=== PATIENT | female | born 1955 | race Caucasian/White ===

== ENCOUNTER 2016-10-22 20:44 | Observation (INO) | payer OTHER ==
[~2016-10-22] VITALS: Ht 154.9 cm; Wt 68.0 kg
[2016-10-22 21:46] LABS: BASO # 0.1 x10^3/uL (0.0-0.2); BASO % 1 % (0-3); EOS % 3 % (0-3); HEMATOCRIT 40.6 % (36.0-47.0); HEMOGLOBIN 13.6 g/dL (12.0-15.5); LYMPH # 4.4 x10^3/uL (1.0-4.8); LYMPH % 38 % (24-48); MEAN CORPUSCULAR HEMOGLOBIN 32 pg (25-35); MEAN CORPUSCULAR HGB CONC 33 g/dL (31-37); MEAN CORPUSCULAR VOLUME 95 fL (79-100); MONO % 6 % (0-9); NEUT % 51 % (31-73); PLATELET COUNT 294 x10^3/uL (140-400); RED BLOOD COUNT 4.26 x10^6/uL (3.50-5.40); RED CELL DISTRIBUTION WIDTH 13.2 % (11.5-14.5); WHITE BLOOD COUNT 11.5 x10^3/uL (4.0-11.0)
[2016-10-22 21:58] LABS: ANION GAP 8 (6-14); BLOOD UREA NITROGEN 21 mg/dL (7-20); CALCIUM 9.3 mg/dL (8.5-10.1); CARBON DIOXIDE 30 mmol/L (21-32); CHLORIDE 102 mmol/L (98-107); CREATININE 1.4 mg/dL (0.6-1.0); GLUCOSE 107 mg/dL (70-99); POTASSIUM 3.2 mmol/L (3.5-5.1); SODIUM 140 mmol/L (136-145)
[2016-10-22 22:04] LABS: ALBUMIN 3.8 g/dL (3.4-5.0); ALK PHOS 74 U/L (46-116); ALT (SGPT) 23 U/L (14-59); AST (SGOT) 14 U/L (15-37); DIRECT BILIRUBIN < 0.1 mg/dL (0.0-0.2); TOTAL BILIRUBIN 0.2 mg/dL (0.2-1.0); TOTAL PROTEIN 7.7 g/dL (6.4-8.2)
[2016-10-22 22:04] LABS: BILIRUBIN,URINE NEGATIVE (NEG); GLUCOSE,URINE NEGATIVE (NEG); NITRITE,URINE NEGATIVE (NEG); PROTEIN,URINE NEGATIVE (NEG-TRACE)
[2016-10-22 22:11] LABS: BACTERIA,URINE FEW /HPF (0-FEW); RBC,URINE OCC /HPF (0-2); WBC,URINE OCC /HPF (0-4)
[2016-10-22 22:12] LABS: SQUAMOUS EPITHELIAL CELL,UR MOD /LPF
--- NOTE | 2016-10-22 22:22 | RAD ---
PROCEDURE CT head without contrast. HISTORY Syncope, patient fell, history of seizure TECHNIQUE Helical CT imaging of the brain is performed without IV contrast. PQRS: One or more the following individualized dose reduction techniques were utilized for the study: 1. Automated exposure control. 2. Adjustment of the mA and/or kV according to patient size. 3. Use of iterative reconstruction technique. COMPARISON None. FINDINGS There is no midline shift or mass effect. No extra-axial fluid collection or intraparenchymal hemorrhage. Mcnulty-white matter differentiation is preserved. Ventricles and sulci are normal for patient age. The visualized paranasal sinuses and mastoid air cells are clear. The globes and orbits appear intact. No acute calvarial abnormality. IMPRESSION No acute intracranial abnormality. Electronically signed by: Jelly Roach MD (Oct 22, 2016 22:21:04)
[2016-10-23] VITALS (7 sets, daily range): BP systolic 124–151; BP diastolic 47–72
--- NOTE | 2016-10-23 00:40 | ACF ---
Admission Forms Criteria SYNCOPE Clinical Indications for Admission to Inpatient Care ( Place 'X' for any and all applicable criteria): Admission is indicated for syncope and ANY ONE of the following (1)(2)(3)(4)(5) (6)(7) : [X]I. Inpatient admission required rather than observation care (Also use Syncope: Observation Care Criteria as appropriate) because of ANY ONE of the following: [ ]a) Hemodynamic instability that is severe or persistent [ ]b) Cardiac arrhythmias of immediate concern identified or strongly suspected (eg, needs electrophysiologic study) [ ]c) Acute coronary syndrome identified (Also use Myocardial Infarction or Angina Criteria form ) [ ]d) Structural cardiac disorder (eg, aortic stenosis) suspected as cause that requires immediate correction [X]e) Respiratory symptoms (eg, dyspnea, tachypnea) that are severe or persistent [ ]f) Neurologic signs or symptoms that are severe or persistent ( eg, stroke, seizures, altered mental status) [ ]g) Severe electrolyte abnormalities requiring inpatient care [ ]h) Supplemental oxygen or respiratory treatment for over 24 hrs that are performable only in acute inpatient setting [ ]i) IV fluid to replace significant ongoing (eg, for over 24 hrs ) losses (>3 L/m2 per day) [ ]j) Continuous intravenous infusion of anticoagulation, platelet inhibitor, vasoactive, or antiarrhythmic medication(15)(16) [ ]k) Pulmonary artery catheter monitoring [ ]l) Temporary pacemaker placement(17) [ ]m) Emergent cardioversion(18) [ ]n) Other conditions, treatment or monitoring requiring inpatient admission [ ]II. Suspicion of imminently dangerous cause (eg, rare causes like pericardial tamponade, pulmonary embolism) [ ]III. Syncope causing severe injury requiring hospitalization Extended stay beyond goal length of stay may be needed for(28) [ ]a) Dangerous arrhythmia(15)(23)(27)(29) [ ]b) Myocardial ischemia [ ]c) Seizure disorder [ ]d) Syncope-related injuries The original [employer] content created by [employer] has been revised. The portions of the content which have been revised are identified through the use of italic text or in bold, and [employer] has neither reviewed nor approved the modified material. All other unmodified content is copyright [employer]. Please see references footnoted in the original [facility] edition 2016 Admission Criteria Met?: Yes RONI JAFFE Oct 23, 2016 00:40
[2016-10-23] MEDS ORDERED: ONDANSETRON PF 4 MG/2 ML VIAL. IV PRN (01:00)
[2016-10-23] MEDS ORDERED: MORPHINE SULFATE 2 MG/ML DISP.SYRIN. IV PRN (01:00)
[2016-10-23] MEDS ORDERED: NITROGLYCERIN SUBLINGUAL 0.4 MG BOTTLE OF 25. SL PRN (01:00)
--- NOTE | 2016-10-23 01:41 | PHYS DOC ---
Past Medical History Past Medical History: High Cholesterol, Hypertension Past Surgical History: Appendectomy, Cholecystectomy, Hysterectomy Additional Information: PPD Drug Use: None Adult General Chief Complaint Chief Complaint: SYNCOPE HPI HPI 61-year-old female presenting to the emergency department today after having a syncopal episode. She presents our emergency department by EMS. She reports falling from standing while she was trying to get something from the refrigerator. Her was nearby and heard a loud noise and came to her side. He reports that she woke up and was without postictal confusion. Currently she denies chest pain shortness of breath headache fevers or chills. She has been feeling well for the past few days and does not have a history of syncope. He denies palpitations. She did complain of sensory changes on the left side of her face. Onset today Location generalized Duration once Intermittent No specific timing Review of Systems Review of Systems ROS negative for fevers chills cough abdominal pain chest pain. All other review of systems is negative unless otherwise noted in history of present illness. Allergies Allergies Allergies Coded Allergies Type Severity Reaction Last Updated Verified metoclopramide Allergy Severe Anaphylaxis 10/22/16 Yes Physical Exam Physical Exam Constitutional: Well developed, well nourished, no acute distress, non-toxic appearance. HENT: Normocephalic, atraumatic, bilateral external ears normal, oropharynx moist, no oral exudates, nose normal. Eyes: PERRLA, EOMI, conjunctiva normal, no discharge. [] Neck: Normal range of motion, no tenderness, supple, no stridor. Cardiovascular:Heart rate regular rhythm, no murmur present. Lungs & Thorax: Bilateral breath sounds clear to auscultation Abdomen: Bowel sounds normal, soft, no tenderness, no masses, no pulsatile masses. Skin: Warm, dry, no erythema, no rash. [] Back: No tenderness, no CVA tenderness. Extremities: No tenderness, no cyanosis, no clubbing, ROM intact, no edema. Neurologic: Mental status: Awake oriented and alert x3 Cranial nerves: Extraocular movements intact, eyebrows tricia bilaterally smile symmetric, uvula elevation, shoulder shrug intact, tongue protrusion normal Sensation: equal and normal in all extremities Strength: 5/5 in upper and lower extremities bilaterally Psychologic: Affect normal, judgement normal, mood normal. Current Patient Data Vital Signs Vital Signs Date Time Temp Pulse Resp B/P Pulse Ox O2 Delivery O2 Flow Rate FiO2 10/22/16 23:30 82 17 149/66 95 Room Air 10/22/16 20:44 98.0 98.0 Lab Values Laboratory Tests Test 10/22/16 20:55 10/22/16 21:53 10/22/16 23:00 White Blood Count 11.5x10^3/uL (4.0-11.0) H Red Blood Count 4.26x10^6/uL (3.50-5.40) Hemoglobin 13.6g/dL (12.0-15.5) Hematocrit 40.6% (36.0-47.0) Mean Corpuscular Volume 95fL (79-100) Mean Corpuscular Hemoglobin 32pg (25-35) Mean Corpuscular Hemoglobin Concent 33g/dL (31-37) Red Cell Distribution Width 13.2% (11.5-14.5) Platelet Count 294x10^3/uL (140-400) Neutrophils (%) (Auto) 51% (31-73) Lymphocytes (%) (Auto) 38% (24-48) Monocytes (%) (Auto) 6% (0-9) Eosinophils (%) (Auto) 3% (0-3) Basophils (%) (Auto) 1% (0-3) Neutrophils # (Auto) 5.9x10^3uL (1.8-7.7) Lymphocytes # (Auto) 4.4x10^3/uL (1.0-4.8) Monocytes # (Auto) 0.7x10^3/uL (0.0-1.1) Eosinophils # (Auto) 0.4x10^3/uL (0.0-0.7) Basophils # (Auto) 0.1x10^3/uL (0.0-0.2) Sodium Level 140mmol/L (136-145) Potassium Level 3.2mmol/L (3.5-5.1) L Chloride Level 102mmol/L (98-107) Carbon Dioxide Level 30mmol/L (21-32) Anion Gap 8 (6-14) Blood Urea Nitrogen 21mg/dL (7-20) H Creatinine 1.4mg/dL (0.6-1.0) H Estimated GFR (Cockcroft-Gault) 38.0 Glucose Level 107mg/dL (70-99) H Calcium Level 9.3mg/dL (8.5-10.1) Total Bilirubin 0.2mg/dL (0.2-1.0) Direct Bilirubin < 0.1mg/dL (0.0-0.2) Aspartate Amino Transferase (AST) 14U/L (15-37) L Alanine Aminotransferase (ALT) 23U/L (14-59) Alkaline Phosphatase 74U/L (46-116) Troponin I Quantitative < 0.017ng/mL (0.000-0.055) GJ-Dbm-W-Type Natriuretic Peptide 27pg/mL (0-124) Total Protein 7.7g/dL (6.4-8.2) Albumin 3.8g/dL (3.4-5.0) Lipase 355U/L (73-393) Urine Color Yellow Urine Clarity Clear Urine pH 7.0 Urine Specific [place] 1.010 Urine Protein Negativemg/dL (NEG-TRACE) Urine Glucose (UA) Negativemg/dL (NEG) Urine Ketones (Stick) Negativemg/dL (NEG) Urine Blood Negative (NEG) Urine Nitrite Negative (NEG) Urine Bilirubin Negative (NEG) Urine Urobilinogen Dipstick 1.0mg/dL (0.2 mg/dL) Urine Leukocyte Esterase Negative (NEG) Urine RBC Occ/HPF (0-2) Urine WBC Occ/HPF (0-4) Urine Squamous Epithelial Cells Mod/LPF Urine Bacteria Few/HPF (0-FEW) Urine Mucus Slight/LPF Lactic Acid Level 1.5mmol/L (0.4-2.0) Laboratory Tests 10/22/16 20:55 Laboratory Tests 10/22/16 20:55 EKG EKG [] EKG shows sinus rhythm with a regular rate. [place]ale is leftward. Intervals are within normal limits. ST segments congruent. Radiology/Procedures Radiology/Procedures [] CT head was unremarkable for acute pathology. Course & Med Decision Making Course & Med Decision Making Pertinent Labs and Imaging studies reviewed. (See chart for details) 61-year-old female presenting to the emergency department with syncopal episode. On initial evaluation vital signs were unremarkable. Physical exam showed a normal neurologic exam. EKG was unremarkable. Head CT was negative. Blood work obtained which showed white blood cell count just above the reference range of normal. Otherwise urinalysis unremarkable. Chemistry panel showed mild elevation in BUN and creatinine. Potassium was low at 3.2 as well. Given the patient's age and syncope, the patient was admitted for telemetry and further evaluation workup and care. Dragon Disclaimer Dragon Disclaimer This electronic medical record was generated, in whole or in part, using a voice recognition dictation system. Departure Departure Impression: Primary Impression: Syncope Disposition: ADMITTED INPATIENT Admitting Physician: Kerri Fletcher Condition: STABLE Referrals: PATTI RODRIGUEZ NP (PCP) MICHELLE LANGFORD MD Oct 23, 2016 01:41
[2016-10-23] MEDS ORDERED: ASPI-482 PO (03:00)
[2016-10-23] MEDS ORDERED: OMEG500C PO (03:00)
[2016-10-23] MEDS ORDERED: ROSUVASTATIN CA10 M1 PO (03:00)
[2016-10-23] MEDS ORDERED: AMLO5TAB2 PO (03:00)
[2016-10-23] MEDS ORDERED: HYDR25TA9 PO (03:00)
[2016-10-23] MEDS ORDERED: LOSA50TA6 PO (03:00)
[2016-10-23] MEDS: NICOTINE 21MG PATCH. TD PRN (05:21)
--- NOTE | 2016-10-23 06:11 | EKG ---
[facility] [address] [place] [address] Test Date: 2016-10-22 Test Time: 21:01:17 Pat Name: NILSA TRUJILLO Department: Room: [facility] Gender: F Trimming Inspector: : 1955 Requested By: MICHELLE LANGFORD Order Number: [id number] Reading MD: Gurinder Clifford Measurements Intervals Wittmann Rate: 88 P: 38 DE: 184 QRS: -33 QRSD: 82 T: 28 QT: 374 QTc: 456 Interpretive Statements SINUS RHYTHM ABNORMAL LEFT AXIS DEVIATION LEFT ANTERIOR FASCICULAR BLOCK Electronically Signed On 10-23-2016 15:47:23 COAGULATING [employer]YING SUPERVISOR by Gurinder Clifford
--- NOTE | 2016-10-23 09:45 | RAD ---
EXAM: Carotid Doppler sonogram. HISTORY: Syncope. TECHNIQUE: Doppler sonographic evaluation of the neck was performed and static images are submitted for review. FINDINGS: The peak systolic velocity within the right common carotid artery is 122 cm/sec. The peak systolic velocities within the right proximal, mid and distal internal carotid artery are 57 cm/sec, 67 cm/sec, and 76 cm/sec, respectively. The peak systolic velocity within the left common carotid artery is 128 cm/sec. The peak systolic velocities within the left proximal, mid and distal internal carotid artery are 66 cm/sec, 81 cm/sec, and 80 cm/sec, respectively. There is normal antegrade flow within both vertebral arteries. IMPRESSION: No Doppler evidence of hemodynamically significant stenosis within the carotid or vertebral arteries. PQRS Statement: NASCET criteria were utilized for this exam.
[2016-10-23] MEDS ORDERED: POTASSIUM CHLORIDE 20 MEQ TABLET.ER. PO ONE (10:45)
[2016-10-23] MEDS ORDERED: IBUPROFEN 600 MG TABLET. PO PRN (10:45)
--- NOTE | 2016-10-23 10:55 | PDOC2 ---
NEUROLOGY CONSULT Date of Admission Date of Admission DATE: 10/23/16 TIME: 10:49 Reason for Consult Reason for Consult: Syncope Referring Physician Referring Physician: Dr. Fletcher PCP: Dr. Anna Lara Source Source: Caregiver, Chart review, Patient History of Present Illness History of Present Illness The patient is a 61-year-old right-handed female who fainted for the first time yesterday. Her observed some tremulousness. The whole episode lasted about 5 minutes. There was lightheadedness and diaphoresis prior to the episode in the patient also noticed some left numbness and right arm and leg numbness. There is no prior history of stroke, seizure, head injury. She feels fine now. Past Medical History Cardiovascular: HTN, Hyperlipidemia Musculoskeletal: low back pain Past Surgical History Past Surgical History: Cholecystectomy, Tonsillectomy, Hysterectomy, Other ( Lumbar) Family History Family History: CAD Social History Social History , smoker, occasional alcohol, retired due to her back problems Current Medications Current Medications Current Medications Ondansetron HCl (Zofran) 4 mg PRN Q8HRS PRN IV NAUSEA/VOMITING; Start 10/23/16 at 01:00; Stop 10/24/16 at 00:59 Morphine Sulfate 2 mg PRN Q2HR PRN IV SEVERE PAIN; Start 10/23/16 at 01:00; Stop 10/24/16 at 00:59 Nitroglycerin (Nitrostat) 0.4 mg PRN Q5MIN PRN SL CHEST PAIN; Start 10/23/16 at 01:00; Stop 10/24/16 at 00:59 Nicotine (Nicoderm Cq 21mg) 1 patch PRN DAILY PRN TD SMOKING CESSATION Last administered on 10/23/16t 05:21; Start 10/23/16 at 03:00 Ibuprofen (Motrin) 600 mg PRN Q6HRS PRN PO INFLAMMATION; Start 10/23/16 at 10: 45 Amlodipine Besylate (Norvasc) 5 mg DAILY PO ; Start 10/23/16 at 11:00 Aspirin (Ecotrin) 81 mg DAILY PO ; Start 10/23/16 at 11:00 Hydrochlorothiazide (Hydrodiuril) 25 mg DAILY PO ; Start 10/23/16 at 11:00 Losartan Potassium (Cozaar) 50 mg DAILY PO ; Start 10/23/16 at 11:00 Atorvastatin Calcium (Lipitor) 40 mg QODAY PO ; Start 10/25/16 at 09:00 Potassium Chloride (Klor-Con) 40 meq 1X ONCE PO ; Start 10/23/16 at 10:45; Stop 10/23/16 at 10:46; Status DC Potassium Chloride (Klor-Con) 20 meq DAILYWBKFT PO ; Start 10/24/16 at 08:00 Active Scripts Active Reported Fish Oil (Richton-3 Fatty Acids) 500 Mg Capsule.dr 500 Mg PO Aspir 81 (Aspirin) 81 Mg Tablet.dr 1 Tab PO DAILY Losartan Potassium 50 Mg Tablet 50 Mg PO DAILY Hydrochlorothiazide Tablet (Hydrochlorothiazide) 25 Mg Tablet 25 Mg PO DAILY Rosuvastatin Calcium 10 Mg Tablet 10 Mg PO QODAY Amlodipine Besylate 5 Mg Tablet 5 Mg PO DAILY Allergies Allergies: Coded Allergies: metoclopramide (Verified Allergy, Severe, Anaphylaxis, 10/22/16) ROS Review of System Negative for fevers, chills, weight loss, shortness of breath, chest pain, indigestion, hematochezia, melena, dysuria. Full 14-point review systems is negative. Physical Exam Physical Examination PHYSICAL EXAMINATION: Vital signs: see above. General appearance is normal and in no acute distress. HEENT: Normocephalic and nontraumatic. Eyes, nose, ears, and throat are unremarkable. Neck is supple. No lymphadenopathy. No bruits are heard over the carotid artery. No crepitus. NEUROLOGICAL EXAMINATION: Mental Status Examination: Alert. Oriented to time, place, and person. Answers questions and follows commends. Pupils are equal round and reactive to light and accommodation. Funduscopic exam: No papilledema. Extraocular movements are intact. Visual field exam shows no defect on the direct confrontation. No motor or sensory deficits on the facial exam. Uvula in the midline and the soft palate elevated symmetrically. No deviation of the tongue to any direction. Gross hearing is normal. Shoulder shrug normal. Muscle tone is normal. Muscle strength is 5. Deep tendon reflexes are 2+ all around. Plantar reflex is with flexion response bilaterally. Fperdg-nq-ieee test performance is accurate. Tandem walk test is accurate. Alternative movements are accurate. Romberg test is negative. Gait is normal. Sensory exam shows no deficits. No cerebellar signs are elicited. Vitals VITALS Vital Signs Date Time Temp Pulse Resp B/P Pulse Ox O2 Delivery O2 Flow Rate FiO2 10/23/16 08:00 Room Air 10/23/16 07:00 97.7 56 18 127/64 96 97.7 Labs Labs Laboratory Tests Test 10/22/16 20:55 10/22/16 21:53 10/22/16 23:00 10/23/16 07:00 White Blood Count 11.5x10^3/uL (4.0-11.0) Red Blood Count 4.26x10^6/uL (3.50-5.40) Hemoglobin 13.6g/dL (12.0-15.5) Hematocrit 40.6% (36.0-47.0) Mean Corpuscular Volume 95fL (79-100) Mean Corpuscular Hemoglobin 32pg (25-35) Mean Corpuscular Hemoglobin Concent 33g/dL (31-37) Red Cell Distribution Width 13.2% (11.5-14.5) Platelet Count 294x10^3/uL (140-400) Neutrophils (%) (Auto) 51% (31-73) Lymphocytes (%) (Auto) 38% (24-48) Monocytes (%) (Auto) 6% (0-9) Eosinophils (%) (Auto) 3% (0-3) Basophils (%) (Auto) 1% (0-3) Neutrophils # (Auto) 5.9x10^3uL (1.8-7.7) Lymphocytes # (Auto) 4.4x10^3/uL (1.0-4.8) Monocytes # (Auto) 0.7x10^3/uL (0.0-1.1) Eosinophils # (Auto) 0.4x10^3/uL (0.0-0.7) Basophils # (Auto) 0.1x10^3/uL (0.0-0.2) Sodium Level 140mmol/L (136-145) Potassium Level 3.2mmol/L (3.5-5.1) Chloride Level 102mmol/L (98-107) Carbon Dioxide Level 30mmol/L (21-32) Anion Gap 8 (6-14) Blood Urea Nitrogen 21mg/dL (7-20) Creatinine 1.4mg/dL (0.6-1.0) Estimated GFR (Cockcroft-Gault) 38.0 Glucose Level 107mg/dL (70-99) Calcium Level 9.3mg/dL (8.5-10.1) Total Bilirubin 0.2mg/dL (0.2-1.0) Direct Bilirubin < 0.1mg/dL (0.0-0.2) Aspartate Amino Transf (AST/SGOT) 14U/L (15-37) Alanine Aminotransferase (ALT/SGPT) 23U/L (14-59) Alkaline Phosphatase 74U/L (46-116) Troponin I Quantitative < 0.017ng/mL (0.000-0.055) < 0.017ng/mL (0.000-0.055) OG-Gwb-C-Type Natriuretic Peptide 27pg/mL (0-124) Total Protein 7.7g/dL (6.4-8.2) Albumin 3.8g/dL (3.4-5.0) Lipase 355U/L (73-393) Urine Color Yellow Urine Clarity Clear Urine pH 7.0 Urine Specific [place] 1.010 Urine Protein Negativemg/dL (NEG-TRACE) Urine Glucose (UA) Negativemg/dL (NEG) Urine Ketones (Stick) Negativemg/dL (NEG) Urine Blood Negative (NEG) Urine Nitrite Negative (NEG) Urine Bilirubin Negative (NEG) Urine Urobilinogen Dipstick 1.0mg/dL (0.2 mg/dL) Urine Leukocyte Esterase Negative (NEG) Urine RBC Occ/HPF (0-2) Urine WBC Occ/HPF (0-4) Urine Squamous Epithelial Cells Mod/LPF Urine Bacteria Few/HPF (0-FEW) Urine Mucus Slight/LPF Lactic Acid Level 1.5mmol/L (0.4-2.0) Laboratory Tests Test 10/22/16 20:55 10/22/16 21:53 10/22/16 23:00 10/23/16 07:00 White Blood Count 11.5x10^3/uL (4.0-11.0) Red Blood Count 4.26x10^6/uL (3.50-5.40) Hemoglobin 13.6g/dL (12.0-15.5) Hematocrit 40.6% (36.0-47.0) Mean Corpuscular Volume 95fL (79-100) Mean Corpuscular Hemoglobin 32pg (25-35) Mean Corpuscular Hemoglobin Concent 33g/dL (31-37) Red Cell Distribution Width 13.2% (11.5-14.5) Platelet Count 294x10^3/uL (140-400) Neutrophils (%) (Auto) 51% (31-73) Lymphocytes (%) (Auto) 38% (24-48) Monocytes (%) (Auto) 6% (0-9) Eosinophils (%) (Auto) 3% (0-3) Basophils (%) (Auto) 1% (0-3) Neutrophils # (Auto) 5.9x10^3uL (1.8-7.7) Lymphocytes # (Auto) 4.4x10^3/uL (1.0-4.8) Monocytes # (Auto) 0.7x10^3/uL (0.0-1.1) Eosinophils # (Auto) 0.4x10^3/uL (0.0-0.7) Basophils # (Auto) 0.1x10^3/uL (0.0-0.2) Sodium Level 140mmol/L (136-145) Potassium Level 3.2mmol/L (3.5-5.1) Chloride Level 102mmol/L (98-107) Carbon Dioxide Level 30mmol/L (21-32) Anion Gap 8 (6-14) Blood Urea Nitrogen 21mg/dL (7-20) Creatinine 1.4mg/dL (0.6-1.0) Estimated GFR (Cockcroft-Gault) 38.0 Glucose Level 107mg/dL (70-99) Calcium Level 9.3mg/dL (8.5-10.1) Total Bilirubin 0.2mg/dL (0.2-1.0) Direct Bilirubin < 0.1mg/dL (0.0-0.2) Aspartate Amino Transf (AST/SGOT) 14U/L (15-37) Alanine Aminotransferase (ALT/SGPT) 23U/L (14-59) Alkaline Phosphatase 74U/L (46-116) Troponin I Quantitative < 0.017ng/mL (0.000-0.055) < 0.017ng/mL (0.000-0.055) GU-Gjq-J-Type Natriuretic Peptide 27pg/mL (0-124) Total Protein 7.7g/dL (6.4-8.2) Albumin 3.8g/dL (3.4-5.0) Lipase 355U/L (73-393) Urine Color Yellow Urine Clarity Clear Urine pH 7.0 Urine Specific [place] 1.010 Urine Protein Negativemg/dL (NEG-TRACE) Urine Glucose (UA) Negativemg/dL (NEG) Urine Ketones (Stick) Negativemg/dL (NEG) Urine Blood Negative (NEG) Urine Nitrite Negative (NEG) Urine Bilirubin Negative (NEG) Urine Urobilinogen Dipstick 1.0mg/dL (0.2 mg/dL) Urine Leukocyte Esterase Negative (NEG) Urine RBC Occ/HPF (0-2) Urine WBC Occ/HPF (0-4) Urine Squamous Epithelial Cells Mod/LPF Urine Bacteria Few/HPF (0-FEW) Urine Mucus Slight/LPF Lactic Acid Level 1.5mmol/L (0.4-2.0) Images Images Head CT and carotid Dopplers negative Assessment/Plan Assessment/Plan Impression: Vasovagal syncope, but she did have some tremulousness raising the possibility of a seizure, and she had some focal neurological symptoms, raising the possibility of a transient ischemic attack. Recommendations: Carotid Doppler's (already done) MRI of the brain Echocardiogram Electroencephalogram Cardiac monitoring Aim for discharged today if tests unrewarding. I explained to the patient and her that we determine the diagnosis for syncope in certainty only about 25% of the time, basically when a patient is hooked up to monitoring during the episode. If she has further episodes she could have an implantable Loop recorder. Thank you for letting me help with the patient's care. TASHIA MAXWELL MD Oct 23, 2016 10:55
[2016-10-23] MEDS ORDERED: HYDROCHLOROTHIAZIDE 25 MG TABLET PO SCH (11:00)
--- NOTE | 2016-10-23 11:13 | PDOC1 ---
History and Physical Date of Admission Date of Admission DATE: 10/23/16 TIME: 11:09 Identification/Chief Complaint Chief Complaint syncope Source Source: Caregiver, Chart review, Patient History of Present Illness History of Present Illness syncope. was not feeling well yesterday, felt "woozy" with sinus pressure. then her BP was up and she ":doubled up" on her BP meds. she then saw stars , and lost a short amount of time after she bent over looking in the fridge. she thinks she passed out, but she feels much better today, she otherwise feels ill like she has a cold. No fever, no myalgias. no cough polly also complains of crampy leg pain since she started statin med Past Medical History Cardiovascular: HTN, Hyperlipidemia Musculoskeletal: low back pain Past Surgical History Past Surgical History: Cholecystectomy, Tonsillectomy, Hysterectomy, Other ( Lumbar) Family History Family History: No Significant Social History Smoke: <1 pack per day ALCOHOL: none Drugs: None Current Problem List Problem List Problems Medical Problems: (1) Syncope Status: Acute Problems: Current Medications Current Medications Current Medications Ondansetron HCl (Zofran) 4 mg PRN Q8HRS PRN IV NAUSEA/VOMITING; Start 10/23/16 at 01:00; Stop 10/24/16 at 00:59 Morphine Sulfate 2 mg PRN Q2HR PRN IV SEVERE PAIN; Start 10/23/16 at 01:00; Stop 10/24/16 at 00:59 Nitroglycerin (Nitrostat) 0.4 mg PRN Q5MIN PRN SL CHEST PAIN; Start 10/23/16 at 01:00; Stop 10/24/16 at 00:59 Nicotine (Nicoderm Cq 21mg) 1 patch PRN DAILY PRN TD SMOKING CESSATION Last administered on 10/23/16t 05:21; Start 10/23/16 at 03:00 Ibuprofen (Motrin) 600 mg PRN Q6HRS PRN PO INFLAMMATION; Start 10/23/16 at 10: 45 Amlodipine Besylate (Norvasc) 5 mg DAILY PO ; Start 10/23/16 at 11:00 Aspirin (Ecotrin) 81 mg DAILY PO ; Start 10/23/16 at 11:00 Hydrochlorothiazide (Hydrodiuril) 25 mg DAILY PO ; Start 10/23/16 at 11:00 Losartan Potassium (Cozaar) 50 mg DAILY PO ; Start 10/23/16 at 11:00 Atorvastatin Calcium (Lipitor) 40 mg QODAY PO ; Start 10/25/16 at 09:00 Potassium Chloride (Klor-Con) 40 meq 1X ONCE PO ; Start 10/23/16 at 10:45; Stop 10/23/16 at 10:46; Status DC Potassium Chloride (Klor-Con) 20 meq DAILYWBKFT PO ; Start 10/24/16 at 08:00 Active Scripts Active Reported Fish Oil ([place]-3 Fatty Acids) 500 Mg Capsule.dr 500 Mg PO Aspir 81 (Aspirin) 81 Mg Tablet.dr 1 Tab PO DAILY Losartan Potassium 50 Mg Tablet 50 Mg PO DAILY Hydrochlorothiazide Tablet (Hydrochlorothiazide) 25 Mg Tablet 25 Mg PO DAILY Rosuvastatin Calcium 10 Mg Tablet 10 Mg PO QODAY Amlodipine Besylate 5 Mg Tablet 5 Mg PO DAILY Allergies Allergies: Coded Allergies: metoclopramide (Verified Allergy, Severe, Anaphylaxis, 10/22/16) ROS General: YES: Appetite, Fatigue, Malaise, No: Chills, Night Sweats, Other PSYCHOLOGICAL ROS: No: Anxiety, Behavioral Disorder, Concentration difficultie , Decreased libido, Depression, Disorientation, Hallucinations, Hostility, Irritablity, Memory difficulties, Mood Swings, Obsessive thoughts, Other, Physical abuse, Sexual abuse, Sleep disturbances, Suicidal ideation Eyes: No Blurry vision, No Decreased vision, No Double vision, No Dry eyes, No Excessive tearing, No Eye Pain, No Itchy Eyes, No Loss of vision, No Other, No Photophobia, No Scotomata, No Uses contacts, No Uses glasses HEENT: YES: Heacaches, Sinus pain, Sneezing, Vocal changes, No: Epistaxis, Hearing change, Nasal congestion, Nasal discharge, Oral lesions, Other, Snoring, Sore Throat, Tinnitus, Vertigo, Visual Changes Respiratory: No: Cough, Hemoptysis, Orthopnea, Other, Pleuritic Pain, SOB with excertion, Shortness of breath, Sputum Changes, Stridor, Tachypnea, Wheezing Cardiovascular: No Chest Pain, No Edema, No Lt Headedness, No Orthopnea, No Other, No Palpitations, No Paroxysmal Noc. Dyspnea Gastrointestinal: No Abdominal Pain, No Constipation, No Diarrhea, No Hematochezia, No Melena, No Nausea, No Other, No Vomiting Genitourinary: No , No , No , No , No , No , No , No Discharge, No Dysuria, No Flank Pain, No Frequency, No Hematuria, No Incontinence, No Other, No Pain, No Retention, No Urgency Musculoskeletal: Yes Joint Pain, No Gait Disturbance, No Joint Stiffness, No Joint Swelling, No Muscle Pain, No Muscular Weakness, No Other, No Pain In:, No Swelling In: Neurological: No Behavorial Changes, No Bowel/Bladder ControlChng, No Confusion , No Dizziness, No Gait Disturbance, No Headaches, No Impaired Coord/balance, No Memory Loss, No Numbness/Tingling, No Other, No Seizures, No Speech Problems , No Tremors, No Visual Changes, No Weakness Skin: No Acne, No Dry Skin, No Eczema, No Hair Changes, No Lumps, No Mole Changes, No Mottling, No Nail Changes, No Other, No Pruritus, No Rash, No Skin Lesion Changes Physical Exam General: Alert, Oriented X3, Cooperative, No acute distress HEENT: Atraumatic, PERRLA, EOMI, Mucous membr. moist/pink Lungs: Clear to auscultation Heart: S1S2, no murmurs Abdomen: Normal bowel sounds, Soft Extremities: No clubbing, No edema Skin: No rashes, No breakdown, No significant lesion Neuro: Normal tone, Sensation intact, Cranial nerves 3-12 NL Vitals Vitals Vital Signs Date Time Temp Pulse Resp B/P Pulse Ox O2 Delivery O2 Flow Rate FiO2 10/23/16 08:00 Room Air 10/23/16 07:00 97.7 56 18 127/64 96 97.7 Labs Labs Laboratory Tests Test 10/22/16 20:55 10/22/16 21:53 10/22/16 23:00 10/23/16 07:00 White Blood Count 11.5x10^3/uL (4.0-11.0) Red Blood Count 4.26x10^6/uL (3.50-5.40) Hemoglobin 13.6g/dL (12.0-15.5) Hematocrit 40.6% (36.0-47.0) Mean Corpuscular Volume 95fL (79-100) Mean Corpuscular Hemoglobin 32pg (25-35) Mean Corpuscular Hemoglobin Concent 33g/dL (31-37) Red Cell Distribution Width 13.2% (11.5-14.5) Platelet Count 294x10^3/uL (140-400) Neutrophils (%) (Auto) 51% (31-73) Lymphocytes (%) (Auto) 38% (24-48) Monocytes (%) (Auto) 6% (0-9) Eosinophils (%) (Auto) 3% (0-3) Basophils (%) (Auto) 1% (0-3) Neutrophils # (Auto) 5.9x10^3uL (1.8-7.7) Lymphocytes # (Auto) 4.4x10^3/uL (1.0-4.8) Monocytes # (Auto) 0.7x10^3/uL (0.0-1.1) Eosinophils # (Auto) 0.4x10^3/uL (0.0-0.7) Basophils # (Auto) 0.1x10^3/uL (0.0-0.2) Sodium Level 140mmol/L (136-145) Potassium Level 3.2mmol/L (3.5-5.1) Chloride Level 102mmol/L (98-107) Carbon Dioxide Level 30mmol/L (21-32) Anion Gap 8 (6-14) Blood Urea Nitrogen 21mg/dL (7-20) Creatinine 1.4mg/dL (0.6-1.0) Estimated GFR (Cockcroft-Gault) 38.0 Glucose Level 107mg/dL (70-99) Calcium Level 9.3mg/dL (8.5-10.1) Total Bilirubin 0.2mg/dL (0.2-1.0) Direct Bilirubin < 0.1mg/dL (0.0-0.2) Aspartate Amino Transf (AST/SGOT) 14U/L (15-37) Alanine Aminotransferase (ALT/SGPT) 23U/L (14-59) Alkaline Phosphatase 74U/L (46-116) Troponin I Quantitative < 0.017ng/mL (0.000-0.055) < 0.017ng/mL (0.000-0.055) GJ-Mjp-W-Type Natriuretic Peptide 27pg/mL (0-124) Total Protein 7.7g/dL (6.4-8.2) Albumin 3.8g/dL (3.4-5.0) Lipase 355U/L (73-393) Urine Color Yellow Urine Clarity Clear Urine pH 7.0 Urine Specific [place] 1.010 Urine Protein Negativemg/dL (NEG-TRACE) Urine Glucose (UA) Negativemg/dL (NEG) Urine Ketones (Stick) Negativemg/dL (NEG) Urine Blood Negative (NEG) Urine Nitrite Negative (NEG) Urine Bilirubin Negative (NEG) Urine Urobilinogen Dipstick 1.0mg/dL (0.2 mg/dL) Urine Leukocyte Esterase Negative (NEG) Urine RBC Occ/HPF (0-2) Urine WBC Occ/HPF (0-4) Urine Squamous Epithelial Cells Mod/LPF Urine Bacteria Few/HPF (0-FEW) Urine Mucus Slight/LPF Lactic Acid Level 1.5mmol/L (0.4-2.0) Laboratory Tests Test 10/22/16 20:55 10/22/16 21:53 10/22/16 23:00 10/23/16 07:00 White Blood Count 11.5x10^3/uL (4.0-11.0) Red Blood Count 4.26x10^6/uL (3.50-5.40) Hemoglobin 13.6g/dL (12.0-15.5) Hematocrit 40.6% (36.0-47.0) Mean Corpuscular Volume 95fL (79-100) Mean Corpuscular Hemoglobin 32pg (25-35) Mean Corpuscular Hemoglobin Concent 33g/dL (31-37) Red Cell Distribution Width 13.2% (11.5-14.5) Platelet Count 294x10^3/uL (140-400) Neutrophils (%) (Auto) 51% (31-73) Lymphocytes (%) (Auto) 38% (24-48) Monocytes (%) (Auto) 6% (0-9) Eosinophils (%) (Auto) 3% (0-3) Basophils (%) (Auto) 1% (0-3) Neutrophils # (Auto) 5.9x10^3uL (1.8-7.7) Lymphocytes # (Auto) 4.4x10^3/uL (1.0-4.8) Monocytes # (Auto) 0.7x10^3/uL (0.0-1.1) Eosinophils # (Auto) 0.4x10^3/uL (0.0-0.7) Basophils # (Auto) 0.1x10^3/uL (0.0-0.2) Sodium Level 140mmol/L (136-145) Potassium Level 3.2mmol/L (3.5-5.1) Chloride Level 102mmol/L (98-107) Carbon Dioxide Level 30mmol/L (21-32) Anion Gap 8 (6-14) Blood Urea Nitrogen 21mg/dL (7-20) Creatinine 1.4mg/dL (0.6-1.0) Estimated GFR (Cockcroft-Gault) 38.0 Glucose Level 107mg/dL (70-99) Calcium Level 9.3mg/dL (8.5-10.1) Total Bilirubin 0.2mg/dL (0.2-1.0) Direct Bilirubin < 0.1mg/dL (0.0-0.2) Aspartate Amino Transf (AST/SGOT) 14U/L (15-37) Alanine Aminotransferase (ALT/SGPT) 23U/L (14-59) Alkaline Phosphatase 74U/L (46-116) Troponin I Quantitative < 0.017ng/mL (0.000-0.055) < 0.017ng/mL (0.000-0.055) LT-Yyx-I-Type Natriuretic Peptide 27pg/mL (0-124) Total Protein 7.7g/dL (6.4-8.2) Albumin 3.8g/dL (3.4-5.0) Lipase 355U/L (73-393) Urine Color Yellow Urine Clarity Clear Urine pH 7.0 Urine Specific [place] 1.010 Urine Protein Negativemg/dL (NEG-TRACE) Urine Glucose (UA) Negativemg/dL (NEG) Urine Ketones (Stick) Negativemg/dL (NEG) Urine Blood Negative (NEG) Urine Nitrite Negative (NEG) Urine Bilirubin Negative (NEG) Urine Urobilinogen Dipstick 1.0mg/dL (0.2 mg/dL) Urine Leukocyte Esterase Negative (NEG) Urine RBC Occ/HPF (0-2) Urine WBC Occ/HPF (0-4) Urine Squamous Epithelial Cells Mod/LPF Urine Bacteria Few/HPF (0-FEW) Urine Mucus Slight/LPF Lactic Acid Level 1.5mmol/L (0.4-2.0) VTE Prophylaxis Ordered VTE Prophylaxis Devices: Yes VTE Pharmacological Prophylaxi: No Assessment/Plan Assessment/Plan syncope orthostatic vs. vagal acute viral illness HTn, home med regimen should remain static, discussed hyperlipids, she reports intolerance of current statin MALACHI DE JESUS MD Oct 23, 2016 11:13
--- NOTE | 2016-10-23 11:42 | PDOC2 ---
ANTONIA IQBAL PACKAGE SEALER MACHINE 10/23/16 1142: CARDIAC CONSULT DATE OF CONSULT Date of Consult DATE: 10/23/16 TIME: 11:37 REASON FOR CONSULT Reason for Consult: syncope REFERRING PHYSICIAN Referring Physician: Jose SOURCE Source: Chart review, Patient HISTORY OF PRESENT ILLNESS HISTORY OF PRESENT ILLNESS This is a pleasant 61 yo female admitted for complains of ASTORGA, palpitations, and passing out. Reports that she not passed out in the past. Reports that he woke up yesterday was feeling weird. He then started having palpitations. she could not tell me how long this lasted but no symptoms of immediate chest pain, nor SOA. She did started having tightening bilateral ASTORGA which started on her forehead thinking it was sinus then went to occiput then all over her head. She could not tell me how long this lasted but this was associated with falshes of light tinnitus, left facial numbness and left unilateral circumoral tingling. No unilateral extremity weakness, dysarthria nor facial droop. She then proceed to get a bowl and bend over and felt weak. She tried to return to her room and was told that she may have fallen forward for the next thing she remembered was her sitting with her legs up. She was not sure how long she was passed out but no injury was sustained. She does have sensitivity to low potassium explaining that she had seizures about 4-5 yrs ago due to low potassium she was told. She verbalized hydration adequacy and she does consume about 4-5 cups of coffee a day. She smokes tobacco and marijuana as well. Denies any CAD and actually had a treadmill stress test about 2 yrs ago which was normal and denies any hx of VTE, arrhythmia. Denies use of sudafed or any stimulants due to her HTN. She did checked her BP while she had her ASTORGA and it was 180/80 and noted that her HR at that time in the 100-110. PAST MEDICAL HISTORY Cardiovascular: HTN, Hyperlipidemia Pulmonary: No pertinent hx CENTRAL NERVOUS SYSTEM: Seizure (4-5 yrs ago, hypokalemia related?) GI: No pertinent hx Heme/Onc: No pertinent hx Hepatobiliary: No pertinent hx Psych: Anxiety Musculoskeletal: Osteoarthritis Rheumatologic: No pertinent hx Infectious disease: No pertinent hx ENT: No pertinent hx Renal/: No pertinent hx Endocrine: No pertinent hx Dermatology: No pertinent hx PAST SURGICAL HISTORY Past Surgical History: Cholecystectomy, Tonsillectomy, Hysterectomy, Other ( lumbar surgery) FAMILY HISTORY Family History noncontributory SOCIAL HISTORY Smoke: <1 pack per day (45 yrs) ALCOHOL: occassional Drugs: Marijuana Lives: with Family CURRENT MEDICATIONS CURRENT MEDICATIONS Current Medications Medications (Trade) Dose Ordered Sig/Vianca Route PRN Reason Start Time Stop Time Status Last Admin Dose Admin Nicotine (Nicoderm Cq 21mg) 1 patch PRN DAILY PRN TD SMOKING CESSATION 10/23/16 03:00 10/23/16 05:21 ALLERGIES ALLERGIES: Coded Allergies: metoclopramide (Verified Allergy, Severe, Anaphylaxis, 10/22/16) ROS Review of System 14 point ROS evaluated with pertinent positives noted per HPI PHYSICAL EXAM General: Alert, Oriented X3, Cooperative, No acute distress HEENT: Atraumatic, Mucous membr. moist/pink Lungs: Clear to auscultation, Normal air movement Heart: Regular rate, Normal S1, Normal S2, Other (2/6 systolic murmur to [place] border) Extremities: No cyanosis, No edema Skin: No breakdown, No significant lesion Neuro: Normal speech, Sensation intact Psych/Mental Status: Mental status NL, Mood NL MUSCULOSKELETAL: Osteoarthritic changes both hands VITALS VITALS Vital Signs Date Time Temp Pulse Resp B/P Pulse Ox O2 Delivery O2 Flow Rate FiO2 10/23/16 08:00 Room Air 10/23/16 07:00 97.7 56 18 127/64 96 97.7 LABS Lab: Laboratory Tests Test 10/22/16 20:55 10/22/16 21:53 10/22/16 23:00 10/23/16 07:00 White Blood Count 11.5x10^3/uL (4.0-11.0) Red Blood Count 4.26x10^6/uL (3.50-5.40) Hemoglobin 13.6g/dL (12.0-15.5) Hematocrit 40.6% (36.0-47.0) Mean Corpuscular Volume 95fL (79-100) Mean Corpuscular Hemoglobin 32pg (25-35) Mean Corpuscular Hemoglobin Concent 33g/dL (31-37) Red Cell Distribution Width 13.2% (11.5-14.5) Platelet Count 294x10^3/uL (140-400) Neutrophils (%) (Auto) 51% (31-73) Lymphocytes (%) (Auto) 38% (24-48) Monocytes (%) (Auto) 6% (0-9) Eosinophils (%) (Auto) 3% (0-3) Basophils (%) (Auto) 1% (0-3) Neutrophils # (Auto) 5.9x10^3uL (1.8-7.7) Lymphocytes # (Auto) 4.4x10^3/uL (1.0-4.8) Monocytes # (Auto) 0.7x10^3/uL (0.0-1.1) Eosinophils # (Auto) 0.4x10^3/uL (0.0-0.7) Basophils # (Auto) 0.1x10^3/uL (0.0-0.2) Sodium Level 140mmol/L (136-145) Potassium Level 3.2mmol/L (3.5-5.1) Chloride Level 102mmol/L (98-107) Carbon Dioxide Level 30mmol/L (21-32) Anion Gap 8 (6-14) Blood Urea Nitrogen 21mg/dL (7-20) Creatinine 1.4mg/dL (0.6-1.0) Estimated GFR (Cockcroft-Gault) 38.0 Glucose Level 107mg/dL (70-99) Calcium Level 9.3mg/dL (8.5-10.1) Total Bilirubin 0.2mg/dL (0.2-1.0) Direct Bilirubin < 0.1mg/dL (0.0-0.2) Aspartate Amino Transf (AST/SGOT) 14U/L (15-37) Alanine Aminotransferase (ALT/SGPT) 23U/L (14-59) Alkaline Phosphatase 74U/L (46-116) Troponin I Quantitative < 0.017ng/mL (0.000-0.055) < 0.017ng/mL (0.000-0.055) DB-Ols-K-Type Natriuretic Peptide 27pg/mL (0-124) Total Protein 7.7g/dL (6.4-8.2) Albumin 3.8g/dL (3.4-5.0) Lipase 355U/L (73-393) Urine Color Yellow Urine Clarity Clear Urine pH 7.0 Urine Specific [place] 1.010 Urine Protein Negativemg/dL (NEG-TRACE) Urine Glucose (UA) Negativemg/dL (NEG) Urine Ketones (Stick) Negativemg/dL (NEG) Urine Blood Negative (NEG) Urine Nitrite Negative (NEG) Urine Bilirubin Negative (NEG) Urine Urobilinogen Dipstick 1.0mg/dL (0.2 mg/dL) Urine Leukocyte Esterase Negative (NEG) Urine RBC Occ/HPF (0-2) Urine WBC Occ/HPF (0-4) Urine Squamous Epithelial Cells Mod/LPF Urine Bacteria Few/HPF (0-FEW) Urine Mucus Slight/LPF Lactic Acid Level 1.5mmol/L (0.4-2.0) ASSESSMENT/PLAN ASSESSMENT/PLAN 1. Syncope with nontraumatic fall: neurology following. Positive for photopsia/ tinnitus/left facial numbness and circumoral tingling with ASTORGA. Possible migraine /vasovagal component with associated prerenal azotemia from volume depletion. Will need to rule out arrhythmia episode with initial symptom of palpitations. TTE today. Tele review revealed no significant ectopies. EKG SR with LAFB. If tests are inconclusive then will plan for event monitor. Check for orthostasis. 2. Accelerated HTN: controlled now with losartan and amlodipine. Uptitrate per BP response. Start on ECASA for primary prevention. 3. HLP: statin 4. Hx of seizure: was told related to significant hypokalemia with increased sensitivity. Takes HCTZ TIW. Recommend discontinuation. 5. Hypokalemia: replaced now normal. DC HCTZ 6. Tobaccoism: smoking cessation. Possible undiagnosed COPD. Consider MARTHA workup as an outpt. 7. Substance abuse: marijuana use, advised abstinence. Problems: JEREMY BRINK MD 10/23/16 194: CARDIAC CONSULT ALLERGIES ALLERGIES: Coded Allergies: metoclopramide (Verified Allergy, Severe, Anaphylaxis, 10/22/16) ASSESSMENT/PLAN ASSESSMENT/PLAN Patient seen and examined. Agree with PILATES INSTRUCTOR's assessment and plan. Syncope most probably vasovagal. Tele did not show any arrhythmias so far. 2D echo showed normal LV function without any structural abnormalities. Continue workup per Neurology team. We will consider event monitor as outpatient. BP better controlled since admission. Continue current medical regimen. Thank you for your consultation. Problems: ANTONIA IQBAL APRN Oct 23, 2016 11:42 JEREMY BRINK MD Oct 23, 2016 19:41
--- NOTE | 2016-10-23 11:57 | CARD ---
APPROVED REPORT EXAM: Two-dimensional and M-mode echocardiogram with Doppler and color Doppler. Other Information Quality : Average Rhythm : NSR INDICATION Syncope 2D DIMENSIONS RVDd3.7 (2.9-3.5cm)Left Atrium(2D)3.2 (1.6-4.0cm) IVSd1.2 (0.7-1.1cm)Aortic Root(2D)2.8 (2.0-3.7cm) LVDd4.3 (3.9-5.9cm)LVOT Diameter2.0 (1.8-2.4cm) PWd1.2 (0.7-1.1cm)LVDs2.6 (2.5-4.0cm) FS (%) 39.5 %SV57.0 ml LVEF(%)70.4 (>50%) Aortic Valve AoV Peak Pedro.160.1cm/sAoV VTI28.1cm AO Peak GR.10.3mmHgLVOT Peak Pedro.131.5cm/s LVOT VTI 26.81cmAO Mean GR.5mmHg CLYDE (VMAX)2.50dd4QTB (VTI)3.04cm2 AI P 1/2 Vvrv000mo Mitral Valve MV E Vmbiobip04.4cm/sMV DECEL QWTM468ol MV A Uxkzavyy60.8cm/sMV E Mean Gr.2mmHg MV RKH38lkK/A Ratio1.0 MV A Mnxierjv639hjZWF (PHT)3.21cm2 TDI E/Lateral E'7.7E/Medial E'10.4 Pulmonary Valve PV Peak Mkldqtoi890.8cm/sPV Peak Grad.5mmHg RVOT VTI21.7cm Tricuspid Valve TR P. Vqimvaas770sm/sRAP XCDKZVYW0jpDv TR Peak Gr.73hiNsOEWL04mfVm Pulmonary Vein S1 Iktloyui00.3cm/sD2 Khnuwzzf26.8cm/s LEFT VENTRICLE The left ventricle is normal size. There is borderline concentric left ventricular hypertrophy. Left ventricle systolic function is normal. The Ejection Fraction is 65-70%. There is normal LV segmental wall motion. The left ventricular diastolic function and filling is normal for age. RIGHT VENTRICLE The right ventricle is normal size. The right ventricular systolic function is normal. ATRIA The left atrium size is normal. The right atrium size is normal. The interatrial septum is intact wit h no evidence for an atrial septal defect or patent foramen ovale as noted on 2-D or Doppler imaging. AORTIC VALVE The aortic valve is normal in structure. The aortic valve is trileaflet. Doppler and Color Flow revea led mild aortic regurgitation. There is no significant aortic valvular stenosis. MITRAL VALVE The mitral valve is normal in structure and function. There is no mitral valve stenosis. Doppler and Color Flow revealed no mitral valve regurgitation noted. TRICUSPID VALVE The tricuspid valve is normal in structure and function. Doppler and Color Flow revealed mild tricusp id regurgitation. The PA pressure was estimated at 27 mmHg. There is no tricuspid valve stenosis. PULMONIC VALVE The pulmonic valve is not well visualized. Doppler and Color Flow revealed no pulmonic valvular regur gitation. There is no pulmonic valvular stenosis. GREAT VESSELS The aortic root is normal in size. Normal pulmonary venous flow (Doppler). The IVC is normal in size and collapses >50% with inspiration. PERICARDIAL EFFUSION There is no evidence of significant pericardial effusion. Critical Notification Critical Value: No <Conclusion> Left ventricle systolic function is normal. The Ejection Fraction is 65-70%. There is normal LV segmental wall motion. Doppler and Color Flow revealed mild aortic regurgitation.
[2016-10-23 11:58] LABS: CALCIUM 8.9 mg/dL (8.5-10.1); CREATININE 0.9 mg/dL (0.6-1.0); GFR 63.2; MAGNESIUM 2.3 mg/dL (1.8-2.4); POTASSIUM 3.6 mmol/L (3.5-5.1)
--- NOTE | 2016-10-23 13:04 | EEG ---
DATE OF SERVICE: 10/23/2016 ATTENDING PHYSICIAN: Dr. Fletcher. OBJECTIVE: The patient is a 61-year-old female with syncope, possible convulsive activity. DESCRIPTION: This is a digital study. Electrodes are placed according to the international 10-20 system. Bipolar and referential montages are available. Activation procedures typically include hyperventilation and intermittent photic stimulation. INTERPRETATION: The waking background consists of 9-10 Hz, 50-100 microvolt activity, symmetrically distributed over parietooccipital regions and reactive to eye opening. Brief episodes of drowsiness are seen. Hyperventilation and intermittent photic stimulation are noncontributory. IMPRESSION: This electroencephalogram with the patient awake and briefly drowsy is within normal limits. There is no focal, paroxysmal, or epileptiform activity. Thank you for letting us help with the patient's care. TASHIA MAXWELL MD DR: SHONNA/diamond JOB#: [id number] / [id number]
[2016-10-23] MEDS: ASPIRIN ENTERIC COATED 81 MG TABLET.DR. PO SCH (13:46)
[2016-10-23] MEDS: LOSARTAN POTASSIUM 50 MG TABLET. PO SCH (13:47)
[2016-10-23] MEDS: AMLODIPINE BESYLATE 5 MG TABLET PO SCH (13:47)
--- NOTE | 2016-10-23 14:05 | RAD ---
PROCEDURE MRI brain without contrast. HISTORY Lightheaded, syncopal episode, numbness of the left face, elevated blood pressure TECHNIQUE Sagittal and axial T1, axial and coronal T2, axial diffusion, axial FLAIR, and axial gradient echo T2 weighted images were acquired of the brain. COMPARISON None FINDINGS There is no restricted diffusion suggestive of recent infarct or cytotoxic edema. There is no intra-axial mass effect, midline shift, extra-axial fluid collection. Ventricles, sulci, cisterns are within normal limits in size and configuration. There are a few small foci of T2 and FLAIR hyperintense signal abnormality of the supratentorial white matter such as of the bilateral periatrial white matter, also focus of the posterior left juares radiata. There is preservation of the major arterial intracranial flow voids at the skull base. 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 There is mild thickening of the mastoid air cells greater on the right. There are right greater than left elly bullosa. There is patchy mild ethmoid air cell as well as frontal and maxillary sinus mucosal thickening. Cerebellar tonsils are normal in location. There is preservation of the marrow signal of the clivus. There is no significant abnormality of pineal gland or pituitary gland. Not fully included, there is suggestion of disc osteophyte complex and bulge/protrusion at C4-5 at which there is likely at least spinal stenosis on the order of 6-7 millimeters. IMPRESSION 1. There is no evidence of recent infarct or intracranial mass effect. Minimal T2 and FLAIR hyperintense signal abnormality of the supratentorial white matter is nonspecific, may be due to chronic microvascular ischemic disease given history of hypertension. 2. There is degenerative disc disease and spondylosis of visualized superior cervical spine, likely mild to moderate spinal stenosis C4-5. Electronically signed by: Song Vasquez MD (Oct 23, 2016 14:01:01)
[2016-10-24 03:00] VITALS: BP 104/52
[2016-10-24 04:21] LABS: BASO # 0.1 x10^3/uL (0.0-0.2); BASO % 1 % (0-3); EOS % 5 % (0-3); HEMATOCRIT 38.1 % (36.0-47.0); HEMOGLOBIN 12.6 g/dL (12.0-15.5); LYMPH # 3.4 x10^3/uL (1.0-4.8); LYMPH % 40 % (24-48); MEAN CORPUSCULAR HEMOGLOBIN 32 pg (25-35); MEAN CORPUSCULAR HGB CONC 33 g/dL (31-37); MEAN CORPUSCULAR VOLUME 97 fL (79-100); MONO % 8 % (0-9); NEUT % 46 % (31-73); PLATELET COUNT 263 x10^3/uL (140-400); RED BLOOD COUNT 3.93 x10^6/uL (3.50-5.40); RED CELL DISTRIBUTION WIDTH 13.6 % (11.5-14.5); WHITE BLOOD COUNT 8.6 x10^3/uL (4.0-11.0)
[2016-10-24 04:41] LABS: CALCIUM 8.8 mg/dL (8.5-10.1); POTASSIUM 4.4 mmol/L (3.5-5.1)
[2016-10-24 06:55] VITALS: BP 130/51
[2016-10-24] MEDS ORDERED: POTASSIUM CHLORIDE 20 MEQ TABLET.ER. PO SCH (08:00)
[2016-10-24] MEDS: NICOTINE 21MG PATCH. TD PRN (09:37)
[2016-10-24] MEDS: ASPIRIN ENTERIC COATED 81 MG TABLET.DR. PO SCH (09:37)
[2016-10-24] MEDS: LOSARTAN POTASSIUM 50 MG TABLET. PO SCH (09:38)
[2016-10-24] MEDS: AMLODIPINE BESYLATE 5 MG TABLET PO SCH (09:39)
--- NOTE | 2016-10-24 10:06 | PDOC ---
CARDIO Progress Notes Date and Time Date of Service 10/24/2016 Time of Evaluation 1000 Subjective Subjective: No Chest Pain, No shortness of breath, No Palpitations, No Dizziness Vitals Vitals Vital Signs Date Time Temp Pulse Resp B/P Pulse Ox O2 Delivery O2 Flow Rate FiO2 10/24/16 09:39 61 130/51 10/24/16 06:55 97.7 18 98 Room Air 97.7 Weight Weight [ ] Input and Output Intake and Output Intake and Output 10/24/16 07:00 Intake Total 950 ml Output Total 500 ml Balance 450 ml Intake Oral 950 ml Output Urine Total 500 ml # Voids 3 Laboratory Labs Laboratory Tests Test 10/23/16 14:05 10/24/16 03:15 Troponin I Quantitative < 0.017ng/mL (0.000-0.055) White Blood Count 8.6x10^3/uL (4.0-11.0) Red Blood Count 3.93x10^6/uL (3.50-5.40) Hemoglobin 12.6g/dL (12.0-15.5) Hematocrit 38.1% (36.0-47.0) Mean Corpuscular Volume 97fL (79-100) Mean Corpuscular Hemoglobin 32pg (25-35) Mean Corpuscular Hemoglobin Concent 33g/dL (31-37) Red Cell Distribution Width 13.6% (11.5-14.5) Platelet Count 263x10^3/uL (140-400) Neutrophils (%) (Auto) 46% (31-73) Lymphocytes (%) (Auto) 40% (24-48) Monocytes (%) (Auto) 8% (0-9) Eosinophils (%) (Auto) 5% (0-3) Basophils (%) (Auto) 1% (0-3) Neutrophils # (Auto) 4.0x10^3uL (1.8-7.7) Lymphocytes # (Auto) 3.4x10^3/uL (1.0-4.8) Monocytes # (Auto) 0.7x10^3/uL (0.0-1.1) Eosinophils # (Auto) 0.4x10^3/uL (0.0-0.7) Basophils # (Auto) 0.1x10^3/uL (0.0-0.2) Sodium Level 140mmol/L (136-145) Potassium Level 4.4mmol/L (3.5-5.1) Chloride Level 106mmol/L (98-107) Carbon Dioxide Level 28mmol/L (21-32) Anion Gap 6 (6-14) Blood Urea Nitrogen 18mg/dL (7-20) Creatinine 1.0mg/dL (0.6-1.0) Estimated GFR (Cockcroft-Gault) 56.0 Glucose Level 97mg/dL (70-99) Calcium Level 8.8mg/dL (8.5-10.1) Physical Exam HEENT: Neck Supple W Full Motion Chest: Symmetric LUNGS: Clear to Auscultation Heart: S1S2, RRR (no significant ectopies overnight) Abdomen: Soft N/T Extremities: No Calf Tenderness Neurology: alert, oriented, follow commands Assessment Assessment 1. Syncope with nontraumatic fall: no orthostasis. Suspect vasovagal with migraine component. TTE with normal LV systolic function, preserved EF with mild AI. Will need to rule out any inducing arrhythmias and will arrange for outpt event monitoring. OK to DC per cardiac perspective. 2. Accelerated HTN: Controlled, continue current regimen. 3. HLP: statin 4. Hx of seizure: was told related to significant hypokalemia with increased sensitivity. Takes HCTZ TIW. Recommend discontinuation. 5. Hypokalemia: replaced now normal. DC HCTZ 6. Tobaccoism: smoking cessation. Possible undiagnosed COPD. Consider MARTHA workup as an outpt. 7. Substance abuse: marijuana use, advised abstinence. ANTONIA IQBAL APRN Oct 24, 2016 10:06
[2016-10-24 10:36] VITALS: BP 159/64
--- NOTE | 2016-10-24 12:08 | PDOC ---
PROGRESS NOTES Assessment Problems Medical Problems: (1) Syncope Status: Acute Vasovagal syncope, but she did have some tremulousness raising the possibility of a seizure, and she had some focal neurological symptoms, raising the possibility of a transient ischemic attack. Workup is negative. Note that she has had seizure-like activity in the past with hypokalemia and her potassium was a little low at admission Plan Neurological workup is complete, with negative carotids, echocardiogram, electroencephalogram, and brain MRI. Follow-up with neurology as needed. Subjective No complaints Objective Vital Signs Date Time Temp Pulse Resp B/P Pulse Ox O2 Delivery O2 Flow Rate FiO2 10/24/16 10:36 97.5 60 18 159/64 96 Room Air 97.5 Intake and Output 10/24/16 07:00 Intake Total 950 ml Output Total 500 ml Balance 450 ml Intake Oral 950 ml Output Urine Total 500 ml # Voids 3 PHYSICAL EXAM Alert. Oriented to time, place and person. PERRL. EOMI. CN: no focal findings. Muscle tone: normal. Muscle strength: 5/5 DTR: 2+ Plantar reflex: flexor Gait: not examined in bed. Sensory exam: no abnormal findings. No cerebellar signs elicited. Review of Relevant I have reviewed the following items moustapha (where applicable) has been applied. Labs Laboratory Tests Test 10/22/16 20:55 10/22/16 21:53 10/22/16 23:00 10/23/16 07:00 White Blood Count 11.5x10^3/uL (4.0-11.0) Red Blood Count 4.26x10^6/uL (3.50-5.40) Hemoglobin 13.6g/dL (12.0-15.5) Hematocrit 40.6% (36.0-47.0) Mean Corpuscular Volume 95fL (79-100) Mean Corpuscular Hemoglobin 32pg (25-35) Mean Corpuscular Hemoglobin Concent 33g/dL (31-37) Red Cell Distribution Width 13.2% (11.5-14.5) Platelet Count 294x10^3/uL (140-400) Neutrophils (%) (Auto) 51% (31-73) Lymphocytes (%) (Auto) 38% (24-48) Monocytes (%) (Auto) 6% (0-9) Eosinophils (%) (Auto) 3% (0-3) Basophils (%) (Auto) 1% (0-3) Neutrophils # (Auto) 5.9x10^3uL (1.8-7.7) Lymphocytes # (Auto) 4.4x10^3/uL (1.0-4.8) Monocytes # (Auto) 0.7x10^3/uL (0.0-1.1) Eosinophils # (Auto) 0.4x10^3/uL (0.0-0.7) Basophils # (Auto) 0.1x10^3/uL (0.0-0.2) Sodium Level 140mmol/L (136-145) 143mmol/L (136-145) Potassium Level 3.2mmol/L (3.5-5.1) 3.6mmol/L (3.5-5.1) Chloride Level 102mmol/L (98-107) 106mmol/L (98-107) Carbon Dioxide Level 30mmol/L (21-32) 26mmol/L (21-32) Anion Gap 8 (6-14) 11 (6-14) Blood Urea Nitrogen 21mg/dL (7-20) 18mg/dL (7-20) Creatinine 1.4mg/dL (0.6-1.0) 0.9mg/dL (0.6-1.0) Estimated GFR (Cockcroft-Gault) 38.0 63.2 Glucose Level 107mg/dL (70-99) 96mg/dL (70-99) Calcium Level 9.3mg/dL (8.5-10.1) 8.9mg/dL (8.5-10.1) Total Bilirubin 0.2mg/dL (0.2-1.0) Direct Bilirubin < 0.1mg/dL (0.0-0.2) Aspartate Amino Transf (AST/SGOT) 14U/L (15-37) Alanine Aminotransferase (ALT/SGPT) 23U/L (14-59) Alkaline Phosphatase 74U/L (46-116) Troponin I Quantitative < 0.017ng/mL (0.000-0.055) < 0.017ng/mL (0.000-0.055) UG-Kki-K-Type Natriuretic Peptide 27pg/mL (0-124) Total Protein 7.7g/dL (6.4-8.2) Albumin 3.8g/dL (3.4-5.0) Lipase 355U/L (73-393) Urine Color Yellow Urine Clarity Clear Urine pH 7.0 Urine Specific [place] 1.010 Urine Protein Negativemg/dL (NEG-TRACE) Urine Glucose (UA) Negativemg/dL (NEG) Urine Ketones (Stick) Negativemg/dL (NEG) Urine Blood Negative (NEG) Urine Nitrite Negative (NEG) Urine Bilirubin Negative (NEG) Urine Urobilinogen Dipstick 1.0mg/dL (0.2 mg/dL) Urine Leukocyte Esterase Negative (NEG) Urine RBC Occ/HPF (0-2) Urine WBC Occ/HPF (0-4) Urine Squamous Epithelial Cells Mod/LPF Urine Bacteria Few/HPF (0-FEW) Urine Mucus Slight/LPF Lactic Acid Level 1.5mmol/L (0.4-2.0) Magnesium Level 2.3mg/dL (1.8-2.4) Thyroid Stimulating Hormone (TSH) 2.064uIU/mL (0.358-3.74) Test 10/23/16 14:05 10/24/16 03:15 Troponin I Quantitative < 0.017ng/mL (0.000-0.055) White Blood Count 8.6x10^3/uL (4.0-11.0) Red Blood Count 3.93x10^6/uL (3.50-5.40) Hemoglobin 12.6g/dL (12.0-15.5) Hematocrit 38.1% (36.0-47.0) Mean Corpuscular Volume 97fL (79-100) Mean Corpuscular Hemoglobin 32pg (25-35) Mean Corpuscular Hemoglobin Concent 33g/dL (31-37) Red Cell Distribution Width 13.6% (11.5-14.5) Platelet Count 263x10^3/uL (140-400) Neutrophils (%) (Auto) 46% (31-73) Lymphocytes (%) (Auto) 40% (24-48) Monocytes (%) (Auto) 8% (0-9) Eosinophils (%) (Auto) 5% (0-3) Basophils (%) (Auto) 1% (0-3) Neutrophils # (Auto) 4.0x10^3uL (1.8-7.7) Lymphocytes # (Auto) 3.4x10^3/uL (1.0-4.8) Monocytes # (Auto) 0.7x10^3/uL (0.0-1.1) Eosinophils # (Auto) 0.4x10^3/uL (0.0-0.7) Basophils # (Auto) 0.1x10^3/uL (0.0-0.2) Sodium Level 140mmol/L (136-145) Potassium Level 4.4mmol/L (3.5-5.1) Chloride Level 106mmol/L (98-107) Carbon Dioxide Level 28mmol/L (21-32) Anion Gap 6 (6-14) Blood Urea Nitrogen 18mg/dL (7-20) Creatinine 1.0mg/dL (0.6-1.0) Estimated GFR (Cockcroft-Gault) 56.0 Glucose Level 97mg/dL (70-99) Calcium Level 8.8mg/dL (8.5-10.1) Laboratory Tests Test 10/23/16 14:05 10/24/16 03:15 Troponin I Quantitative < 0.017ng/mL (0.000-0.055) White Blood Count 8.6x10^3/uL (4.0-11.0) Red Blood Count 3.93x10^6/uL (3.50-5.40) Hemoglobin 12.6g/dL (12.0-15.5) Hematocrit 38.1% (36.0-47.0) Mean Corpuscular Volume 97fL (79-100) Mean Corpuscular Hemoglobin 32pg (25-35) Mean Corpuscular Hemoglobin Concent 33g/dL (31-37) Red Cell Distribution Width 13.6% (11.5-14.5) Platelet Count 263x10^3/uL (140-400) Neutrophils (%) (Auto) 46% (31-73) Lymphocytes (%) (Auto) 40% (24-48) Monocytes (%) (Auto) 8% (0-9) Eosinophils (%) (Auto) 5% (0-3) Basophils (%) (Auto) 1% (0-3) Neutrophils # (Auto) 4.0x10^3uL (1.8-7.7) Lymphocytes # (Auto) 3.4x10^3/uL (1.0-4.8) Monocytes # (Auto) 0.7x10^3/uL (0.0-1.1) Eosinophils # (Auto) 0.4x10^3/uL (0.0-0.7) Basophils # (Auto) 0.1x10^3/uL (0.0-0.2) Sodium Level 140mmol/L (136-145) Potassium Level 4.4mmol/L (3.5-5.1) Chloride Level 106mmol/L (98-107) Carbon Dioxide Level 28mmol/L (21-32) Anion Gap 6 (6-14) Blood Urea Nitrogen 18mg/dL (7-20) Creatinine 1.0mg/dL (0.6-1.0) Estimated GFR (Cockcroft-Gault) 56.0 Glucose Level 97mg/dL (70-99) Calcium Level 8.8mg/dL (8.5-10.1) Medications Current Medications Ondansetron HCl (Zofran) 4 mg PRN Q8HRS PRN IV NAUSEA/VOMITING; Start 10/23/16 at 01:00; Stop 10/24/16 at 00:59; Status DC Morphine Sulfate 2 mg PRN Q2HR PRN IV SEVERE PAIN; Start 10/23/16 at 01:00; Stop 10/24/16 at 00:59; Status DC Nitroglycerin (Nitrostat) 0.4 mg PRN Q5MIN PRN SL CHEST PAIN; Start 10/23/16 at 01:00; Stop 10/24/16 at 00:59; Status DC Nicotine (Nicoderm Cq 21mg) 1 patch PRN DAILY PRN TD SMOKING CESSATION Last administered on 10/24/16 09:37; Start 10/23/16 at 03:00 Ibuprofen (Motrin) 600 mg PRN Q6HRS PRN PO INFLAMMATION; Start 10/23/16 at 10: 45 Amlodipine Besylate (Norvasc) 5 mg DAILY PO Last administered on 10/24/16 09: 39; Start 10/23/16 at 11:00 Aspirin (Ecotrin) 81 mg DAILY PO Last administered on 10/24/16 09:37; Start at 11:00 Hydrochlorothiazide (Hydrodiuril) 25 mg DAILY PO ; Start 10/23/16 at 11:00; Stop 10/23/16 at 12:57; Status DC Losartan Potassium (Cozaar) 50 mg DAILY PO Last administered on 10/24/16 09:38 ; Start 10/23/16 at 11:00 Atorvastatin Calcium (Lipitor) 40 mg QODAY PO ; Start 10/25/16 at 09:00 Potassium Chloride (Klor-Con) 40 meq 1X ONCE PO Last administered on 13:46; Start 10/23/16 at 10:45; Stop 10/23/16 at 10:46; Status DC Potassium Chloride (Klor-Con) 20 meq [id number] PO Last administered on 09:37; Start 10/24/16 at 08:00 Active Scripts Active Reported Fish Oil (Jackson-3 Fatty Acids) 500 Mg Capsule. 500 Mg PO Aspir 81 (Aspirin) 81 Mg Tablet. 1 Tab PO DAILY Losartan Potassium 50 Mg Tablet 50 Mg PO DAILY Hydrochlorothiazide Tablet (Hydrochlorothiazide) 25 Mg Tablet 25 Mg PO DAILY Rosuvastatin Calcium 10 Mg Tablet 10 Mg PO QODAY Amlodipine Besylate 5 Mg Tablet 5 Mg PO DAILY Vitals/I & O Vital Sign - Last 24 Hours 10/23/16 10/23/16 10/23/16 10/23/16 13:47 13:47 15:00 15:05 Pulse 56 56 74 74 Resp 18 B/P 127/64 127/64 131/64 144/47 Pulse Ox 97 O2 Delivery Room Air 10/23/16 10/23/16 10/23/16 10/23/16 15:10 19:00 20:00 23:00 Temp 97.9 97.7 97.9 97.7 Pulse 75 90 65 Resp 20 18 B/P 147/65 145/72 124/54 Pulse Ox 97 95 O2 Delivery Room Air Room Air Room Air 10/24/16 10/24/16 10/24/16 10/24/16 03:00 06:55 08:00 09:38 Temp 97.5 97.7 97.5 97.7 Pulse 60 61 61 Resp 18 18 B/P 104/52 130/51 130/51 Pulse Ox 95 98 O2 Delivery Room Air Room Air Room Air 10/24/16 10/24/16 09:39 10:36 Temp 97.5 97.5 Pulse 61 60 Resp 18 B/P 130/51 159/64 Pulse Ox 96 O2 Delivery Room Air Intake and Output 10/23/16 10/23/16 10/24/16 15:00 23:00 07:00 Intake Total 200 ml 350 ml 400 ml Output Total 500 ml Balance 200 ml -150 ml 400 ml Images MRI of the brain, echocardiogram, carotid Dopplers, electroencephalogram reviewed and unremarkable TASHIA MAXWELL MD Oct 24, 2016 12:08
[2016-10-25] MEDS ORDERED: ATORVASTATIN CALCIUM 40 MG TABLET. PO SCH (09:00)
== END 2016-10-24 12:18 | disposition home or self-care (01) ==
LOC: ER 20:44 → 6 SOUTH 23:46
PROVIDERS: ADMIT Internal Medicine; ATTEND Internal Medicine
DX: R55 Syncope and collapse (principal); B34.9 Viral infection, unspecified; I10 Essential (primary) hypertension; E78.5 Hyperlipidemia, unspecified; E87.6 Hypokalemia; M19.90 Unspecified osteoarthritis, unspecified site; E78.00 Pure hypercholesterolemia, unspecified; F41.9 Anxiety disorder, unspecified; F17.210 Nicotine dependence, cigarettes, uncomplicated; F12.10 Cannabis abuse, uncomplicated; Z90.49 Acquired absence of other specified parts of digestive tract
CPT/HCPCS: 36415; 70450; 70551; 80048; 80076; 81001; 83605; 83690; 83735; 83880; 84443; 84484; 85027; 93005; 93306; 93880; 95816; 99285; G0378; G0379